=== PATIENT | female | born 1995 | race Caucasian/White ===

== ENCOUNTER 2020-07-10 04:55 | Inpatient (IN) | payer OTHER, SELFPAY ==
[2020-07-10] VITALS (168 sets, daily range): BP systolic 81–138; BP diastolic 28–85; PULSE 67–153; RESP 18–20; TEMP 36.4–37.1; O2SAT 83–100; BMI 33.5
--- NOTE | 2020-07-10 04:55 | LDADM ---
This patient, Alondra Swift, was admitted to Labor/Delivery/Recovery 102 on 07/10/20 at 04:55. Plans for labor, pain management and were discussed with patient. Patient/family oriented to hospital policies and general routines including ID bracelet, bed and alarms, visiting hours, pain management, procedures, bathroom and other care routines, personal items, smoking policy, room service/diet and guest tray routines, infant security routines, and visiting hours. Patient/Family are encouraged to report perceived risks to care and to ask questions if they do not understand what they are told or what they should do. See OBIX for further documentation.
[2020-07-10 05:25] LABS: Basophils Percent Auto 0.2 % (0.2-1.2); Eosinophils Absolute Auto 0.1 K/mm3 (0-0.3); Eosinophils Percent Auto 0.7 % (0-4.4); Hematocrit 37.9 % (37.0-47.0); Hemoglobin 12.6 g/dL (12.0-15.0); Immature Granulocyte Absolute 0.03 K/mm3 (0.00-0.031); Immature Granulocyte Percent A 0.3 % (0-0.5); Lymphocytes Absolute Auto 2.34 K/mm3 (0.9-3.2); Lymphocytes Percent Auto 20.3 % (18.3-44.2); Mean Corpuscular HGB Conc 33.2 g/dl (32-36); Mean Corpuscular Hemoglobin 27.5 pg (26-34); Mean Corpuscular Volume 82.6 fl (80-100); Mean Platelet Volume 10.6 fl (7.4-10.4); Monocytes Absolute Auto 0.8 K/mm3 (0.1-0.6); Monocytes Percent Auto 6.5 % (2.6-8.5); Neutrophils Absolute Auto 8.3 K/mm3 (1.3-6.7); Platelet Count Result 239 k/mm3 (150-375); Red Blood Count 4.59 M/mm3 (4.2-5.4); Red Cell Distribution Width 12.7 % (11.5-14.5); White Blood Count 11.5 K/mm3 (4.5-10.0)
[2020-07-10] MEDS: LACTATED RINGERS 1,000 ML 125 ML IV CONT ×2 (05:41→19:45)
[2020-07-10] MEDS: OXYTOCIN 30 UNITS/NS 500 ML 30 UNITS/500 ML BAG 6 UNITS IV CONT (05:41)
--- NOTE | 2020-07-10 10:33 | WPDOBADMIT ---
Obstetrics - Admit Note Admission Note: record reviewed. No pertinent additions to the history and/or any subsequent changes in the physical findings that are not consistent with the expected course of the were found. Additions to the history and/or subsequent changes in the physical findings follow. Here for MIL per Dr. Blackmon. AROM clear. Cervix /-2 anterior. FHTs reactive
--- NOTE | 2020-07-10 11:41 | WPDANESEPP ---
Anes - Eval Pre Procedure Procedure: Labor Epidural Date/Time: 07/10/20 11:41 Surgeon: Neymar Preop Diagnosis: Labor Pain Pre Op Diagnosis: Induction of Labor Patient Data Age: 25 Gender: F Height: 5 ft 7 in Weight: 97 kg Last Vital Signs Temp 36.6 C 07/10/20 10:30 Pulse 78 07/10/20 11:40 Resp 18 07/10/20 05:11 BP 110/61 07/10/20 11:40 Pulse Ox 100 07/10/20 11:39 Allergies Allergy/AdvReac Type Severity Reaction Status Date / Time No Known Allergies Allergy Verified 06/18/20 13:31 Home Medications Medication Instructions Recorded Confirmed Type PNV cmb#95-ferrous fumarate-FA 1 tablet PO DAILY 06/18/20 07/10/20 History [] Laboratory Tests 07/10/20 07/10/20 07/10/20 05:11 05:11 05:11 WBC 11.5 K/mm3 H K/mm3 (4.5-10.0) RBC 4.59 M/mm3 M/mm3 (4.2-5.4) Hgb 12.6 g/dL g/dL (12.0-15.0) Hct 37.9 % % (37.0-47.0) MCV 82.6 fl fl (80-100) MCH 27.5 pg pg (26-34) MCHC 33.2 g/dl g/dl (32-36) RDW 12.7 % % (11.5-14.5) Plt Count 239 k/mm3 k/mm3 (150-375) MPV 10.6 fl H fl (7.4-10.4) Immature Gran % (Auto) 0.3 % % (0-0.5) Neut % (Auto) 72.0 % % (45.5-73.1) Lymph % (Auto) 20.3 % % (18.3-44.2) Mills % (Auto) 6.5 % % (2.6-8.5) Eos % (Auto) 0.7 % % (0-4.4) Baso % (Auto) 0.2 % % (0.2-1.2) Lymph # (Auto) 2.34 K/mm3 K/mm3 (0.9-3.2) Mills # (Auto) 0.8 K/mm3 H K/mm3 (0.1-0.6) Eos # (Auto) 0.1 K/mm3 K/mm3 (0-0.3) Baso # (Auto) 0.0 K/mm3 K/mm3 (0.0-0.1) Abs Immat Gran (auto) 0.03 K/mm3 K/mm3 (0.00-0.031) Absolute Neuts (auto) 8.3 K/mm3 H K/mm3 (1.3-6.7) Absolute Nucleated RBC 0.0 K/mm3 K/mm3 (0.0-0.012) Nucleated RBC % 0.0 % % (0.0-0.2) RPR Pending Blood Type A Positive Antibody Screen Negative : gestational age (, ALIE 07/12/20) Patient hx anesthesia problems: none Family hx anesthesia problems: none [facility] Family History Family History Other No pertinent family history in first degree relatives Social History Social History Smoking status: Never smoker Substance use: never Gender identity (if verbalized by the patient): Female Spiritual care concerns: No Exam Day of Procedure 07/10/20 11:41 Patient weight: normal Heart: regular rate and rhythm Lungs: normal air movement Airway: Mallampati scale class II Neurological: alert and oriented
[2020-07-10] MEDS: TERBUTALINE SULFATE 1 MG/ML VIAL 0.25 MG SUB-Q (12:22)
--- NOTE | 2020-07-10 12:31 | PM.OBPNLAB ---
Pain Control Date/time seen: 07/10/20 12:31 Called to patient bedside for heart tones. Patient in hands and knees. heart tones at 140 min to mod variability with prolonged deceleration resolved with positioning. Terbutaline given x 1. Pitocin d/c. Reviewed with patient and questions answered.
--- NOTE | 2020-07-10 20:03 | PM.OBPRVD ---
OB - Delivery Note Procedure Delivery date: 07/10/20 Procedure: events: Labor Induction Intrapartal events: Acceleration and Deceleration Induction method: AROM and per pitocin protocol Delivery monitor: external FHT, external uterine, internal FHT and internal uterine Route of delivery: Laceration Description: Perineal - 2nd Degree Delivery repair: vicryl Specimen: No Quantitative Blood Loss (ml): 400 Anesthesia type: Epidural Disposition: floor Baby Date of : 07/10/20 Weeks of gestation at delivery: 39 Infant gender: Male Weight (pounds): 7 Weight (ounces): 11 presentation: vertex position: Left Occiput Anterior Placenta delivery description: Spontaneous cord vessel description: 3 Vessels score one minute: 9 score five minutes: 9
[2020-07-10] MEDS: OXYTOCIN 30 UNITS/NS 500 ML 30 UNITS/500 ML BAG 125 UNITS IV CONT (20:07)
[2020-07-10] MEDS: IBUPROFEN 600 MG TABLET PO (22:02)
[2020-07-10] MEDS: WITCH HAZEL 40 PADS 1 PAD TOPICAL (22:02)
[2020-07-10] MEDS: BENZOCAINE 20% AER SPR (*SP) 56 GM CAN 1 SPRAY TOPICAL (22:02)
--- NOTE | 2020-07-10 23:26 | PC.NURSE ---
Pt moved to room 111 for pp care until room available upstairs.
[2020-07-11] VITALS (9 sets, daily range): BP systolic 107–116; BP diastolic 54–70; PULSE 81–96; RESP 15–18; TEMP 36.2–36.6; O2SAT 100
[2020-07-11 04:20] LABS: Hematocrit 29.1 % (37.0-47.0); Hemoglobin 9.7 g/dL (12.0-15.0)
[2020-07-11] MEDS: IBUPROFEN 600 MG TABLET PO ×3 (05:05→20:41)
[2020-07-11] MEDS: POLYSACCHARIDE IRON COMPLEX 150 MG CAPSULE PO ×2 (08:17→15:35)
[2020-07-11] MEDS: MULTIVIT/MIN/PREN/FOL AC/IRON TABLET 1 TAB PO (08:17)
--- NOTE | 2020-07-11 09:46 | PM.OBPNVD ---
OB - PN: Subj Subjective Date/time seen: 07/11/20 09:46 Doing well no complaints mild cramping OB - PN: Obj Data Labs CBC & Chem 7: 07/11/20 04:12 Labs: Laboratory Results - last 24 hr 07/11/20 04:12 Hgb 9.7 L Hct 29.1 L OB - PN A/P Assessment and Plan (1) (normal spontaneous vaginal delivery): Code(s): O80 - Encounter for full-term uncomplicated delivery Status: Acute Assessment and Plan: continue with pp care. Time Spent With Patient Time: Total time spent is greater than 50% in coordination of care (as documented) at patient's floor/unit and/or counseling patient: Exam Narrative: Exam Narrative: ff below umbilicus
[2020-07-11] MEDS: DOCUSATE SODIUM 100 MG CAPSULE PO (15:35)
[2020-07-12] MEDS: IBUPROFEN 600 MG TABLET PO ×2 (05:37→12:56)
[2020-07-12 08:45] VITALS: PULSE 81; RESP 16; O2SAT 100
[2020-07-12] MEDS: DOCUSATE SODIUM 100 MG CAPSULE PO (09:05)
[2020-07-12] MEDS: POLYSACCHARIDE IRON COMPLEX 150 MG CAPSULE PO (09:05)
[2020-07-12] MEDS: BENZOCAINE 20% AER SPR (*SP) 56 GM CAN 1 SPRAY TOPICAL (09:05)
[2020-07-12] MEDS: WITCH HAZEL 40 PADS 1 PAD TOPICAL (09:05)
[2020-07-12] MEDS: ACETAMINOPHEN 325 MG TABLET 650 MG PO (09:06)
[2020-07-12] MEDS: MULTIVIT/MIN/PREN/FOL AC/IRON TABLET 1 TAB PO (09:06)
--- NOTE | 2020-07-12 09:47 | P.PNOB_ITS ---
OB - PN: Subj Subjective Date/time seen: 07/12/20 09:47 doing well no complaints OB - PN: Obj Data Labs CBC & Chem 7: 07/11/20 04:12 OB - PN A/P Assessment and Plan (1) (normal spontaneous vaginal delivery): Code(s): O80 - Encounter for full-term uncomplicated delivery Status: Acute Assessment and Plan: continue with pp care. Time Spent With Patient Time: Total time spent is greater than 50% in coordination of care (as docum ented) at patient's floor/unit and/or counseling patient: Exam Narrative: Exam Narrative: ff below umbilicus
[2020-07-12 11:43] VITALS: BP 113/69; PULSE 83; RESP 18; TEMP 36.1; O2SAT 100
[2020-07-13 07:41] LABS: Rapid Plasma Reagin Non-Reactive (NonReactive)
[2020-07-14 09:10] VITALS: BP 120/80; PULSE 80; RESP 20; TEMP 36.8; O2SAT 100
--- NOTE | 2020-08-10 07:45 | PM.OBDSVD ---
DS: Admitting Diagnosis Admitting Diagnosis Admitting Diagnosis: Induction of labor OB - DS: Summary Hospital Course Hospital Course: Admitted for induction of labor with . uncomplicated visit. OB Procedures : Ultrasound OB Procedures Intrapartum: Spontaneous Vag Delivery OB Procedures: : None Peripartum Data Infant Delivery Method: Natural Vaginal Laceration Description: Perineal - 2nd Degree complications: none Status at Discharge Functional status at discharge: independent ambulation Overall status at discharge: patient is progressing back to baseline Time Spent with Patient Time attestation: Total time spent providing and/or coordinating discharge services: Discharge Plan Discharge Attending physician on discharge: Adolfo Blackmon Consulting providers: Gerald Dickens ; Radha Valverde Discharging Clinician: Adolfo Blackmon Patient Disposition: Home, Self-Care Activity: may shower and pelvic rest Diet: regular Discharge Instructions: Education: Mom and Baby Guide Given to: Mother Follow-Up: Call your delivering provider's office for an appointment to be seen in: 6 Weeks Mom and baby should come to the [facility] for the follow-up appointment. Appointment Date/Time: July 14, 2020 at 9:00 am What to expect at your follow-up visit: Blood Pressure Check Physical Assessment Call [phone] if you are unable to keep your appointment time. BREAST CARE: * Wear a snug supportive bra. * For engorgement discomfort: Breast Feeding: * Apply warm moist washcloths * Express milk as needed to relieve engorgement * Wear loose clothing * For sore nipples: * Identify correct latch-on * Apply warm moist washcloths before and after nursing * Air dry nipples after nursing * May apply Lansinoh cream to nipples EPISIOTOMY/PERINEAL CARE: * Until bleeding stops, use your bety bottle after urinating * Change your pad frequently throughout the day * You may take sitz baths several times a day (fill your bathtub with warm water and soak for 20 minutes.) Do NOT bathe in the water * No tub baths until seen by your physician - You may shower ACTIVITY: * Rest as much as possible. * Do not exercise or lift anything heavier than your baby (such as laundry or other children.) * Avoid stairs or driving as much as possible. * Do not put anything into the vagina. No douching, tampons, or sexual activity until seen by physician. NOTIFY PHYSICIAN IF YOU HAVE ANY QUESTIONS OR IF ANY OF THE FOLLOWING SYMPTOMS OCCUR: * If your vaginal area becomes red, swollen, or more painful than what you have experienced in the hospital. * If your vaginal bleeding becomes foul smelling. * If your vaginal bleeding becomes more heavy than a period or if your bleeding changes from pink to bright red. However, you may pass an occasional walnut-sized clot once or twice for the first week . * If you experience a sharp, shooting pain in your calves. * If you discover a hard, reddened area on your breast or if you experience flu-like symptoms. DIET: * Eat regular, well-balanced meals. * Drink plenty of fluids daily. If , drink to thirst. Patient Instructions: Vaginal Delivery (DC) Stand Alone Forms: General Discharge Information Follow-up/Referrals: Adolfo Blackmon MD [Physician] - Discharge Medications: Continued PNV cmb#95-ferrous fumarate-FA [] 28 mg iron- 800 mcg Tablet 1 tablet PO DAILY RF: 0 Date of admission: 07/10/20 04:55 Primary Care Provider: PHYSICIAN,COMMISSIONING ENGINEER Admitting Provider: Adolfo Blackmon Attending physician on admission: Adolfo Blackmon Condition: Stable
== END 2020-07-12 13:05 | disposition home or self-care (01) | DRG 807 ==
LOC: ANHLDR 20:03 → ANHOBPP 23:25 → ANHOB2 07-11 13:31
PROVIDERS: Admitting Provider Obstetrics & Gynecology; Visit Provider Obstetrics & Gynecology
DX: O36.8330 Maternal care for abnormalities of the fetal heart rate or rhythm, third trimester, not applicable or unspecified (principal); Z37.0 Single live birth; Z3A.39 39 weeks gestation of pregnancy; O70.1 Second degree perineal laceration during delivery
CPT/HCPCS: 36415; 85014; 85018; 85025; 86592; 86850; 86900; 86901; A9270; J2590; J2795; J3105; J7120